=== PATIENT | female | born 1965 | race Caucasian/White ===

== ENCOUNTER 2018-12-11 00:36 | Inpatient (IN) ==
--- NOTE | 2018-12-11 01:22 | EKG Report ---
Test Performed on : 12/11/2018 00:46:24 AM Test Reason : shortness of breath Blood Pressure : / mmHG Vent. Rate : 154 BPM Atrial Rate : 154 BPM P-R Int : 100 ms QRS Dur : 066 ms QT Int : 262 ms P-R-T Axes : 048 030 101 degrees QTc Int : 419 ms Sinus tachycardia. with short VT with premature ventricular complexes. or fusion complexes Nonspecific ST abnormality Abnormal QRS-T angle, consider primary T wave abnormality Abnormal ECG When compared with ECG of 16-MAR-2007 15:59, fusion complexes are now present premature ventricular complexes. are now present Unconfirmed Result
[2018-12-11 01:29] LABS: INR 1.53; PROTIME 18.7 Seconds (11.0-16.0)
[2018-12-11 01:30] LABS: PTT 58.4 Seconds (22.3-41.8)
[2018-12-11] MEDS ORDERED: ZOSYN 3.375 GM in NS 50 ML IV ONE (01:40)
[2018-12-11 01:53] LABS: URINE SOURCE CATH
[2018-12-11 02:09] LABS: BILIRUBIN URINE NEGATIVE (NEGATIVE); BLOOD URINE NEGATIVE (NEGATIVE); COLOR YELLOW; GLUCOSE URINE NEGATIVE (NEGATIVE); KETONE URINE TRACE mg/dL (NEGATIVE); LEUKOCYTES URINE MODERATE (NEGATIVE); NITRITE URINE NEGATIVE (NEGATIVE); PH URINE 5.5; PROTEIN URINE 50 mg/dL (NEGATIVE); SP GRAVITY URINE 1.029; TURBIDITY URINE HAZY (CLEAR); UROBILINOGEN URINE 2 mg/dL (NORMAL)
[2018-12-11 02:10] LABS: UR EPITHELIAL CELLS <10 /HPF (<10); URINE BACTERIA 4+ /HPF; URINE WBC 20-40 /HPF (<10)
[2018-12-11 02:23] LABS: BASO# 0.03 X1000 (0.0-0.2); BASO% 0.1 % (0.0-0.8); EOS# 0.01 X1000 (0.0-0.7); HEMATOCRIT 22.4 % (37.0-47.0); HEMOGLOBIN 7.1 g/dL (12.0-16.0); IMM GRAN# 1.12 X1000 (0.0-0.04); IMM GRAN% 4.7 % (0.0-0.5); LYMPH% 3.8 % (20.5-51.1); MCHC 31.7 g/dL (33-37); MCV 97.8 FL (81-99); MONO# 1.66 X1000 (0.11-0.59); MPV 12.5 FL (7.4-10.4); NEUT% 84.4 % (42.2-75.2); RBC 2.29 XMIL (4.2-5.4); RDW 17.6 % (11.5-14.5); WBC 23.82 X1000 (4.8-10.8)
[2018-12-11 02:24] LABS: PLT 26 X1000 (130-400)
[2018-12-11 02:29] LABS: ALB/GLOB RATIO 0.9; ALBUMIN 2.5 g/dL (3.5-5.0); ALKALINE PHOSPHATASE 411 U/L (32-104); BUN 22 mg/dL (8-22); CALCIUM 7.6 mg/dL (8.8-10.2); CREATININE 0.5 mg/dL (0.5-0.9); ESTIMATED GFR > 60; GLUCOSE 134 mg/dL (70-104); GOT 121 U/L (10-30); GPT 106 U/L (10-36); TCO2 19 mmol/L (25-35); TOTAL BILIRUBIN 1.06 mg/dL (0.20-1.00); TOTAL PROTEIN 5.3 g/dL (6.3-8.3)
--- NOTE | 2018-12-11 02:30 | PROVIDER DOCUMENTATION ---
This chart was entered by Aanhi Sutherland Scribe, acting as scribe for Saúl Dhaliwal MD. HPI-General Adult - General Chief Complaint: Shortness of Breath Stated Complaint: sob Time Seen by Provider: 12/11/18 00:37 Source: patient Allergies/Adverse Reactions: Patient Allergies Allergy/AdvReac Type Severity Reaction Status Date / Time doxycycline Allergy HIVES Verified 12/12/17 07:35 levofloxacin [From Levaquin] Allergy HIVES Verified 12/12/17 07:35 moxifloxacin HCl * Allergy HIVES Verified 12/12/17 07:35 [From Avelox] Home Medications: Home Medication List Medication Instructions Recorded Confirmed Last Taken Type Clonazepam [Klonopin] 1 mg PO TID PRN PRN 10/31/13 12/11/18 10/11/18 History Gabapentin [Neurontin] 300 mg PO TID 11/29/17 12/11/18 10/11/18 History Hydrocodone/Acetaminophen [[place] 10 each PO TID PRN PRN 11/29/17 12/11/18 10/11/18 History 10-325 Tablet] Levothyroxine Sodium [Synthroid] 100 mcg PO DAILY 11/29/17 12/11/18 10/11/18 History Ondansetron HCl [Zofran] 8 mg PO Q4H PRN PRN 11/29/17 12/11/18 10/11/18 History Promethazine [Phenergan] 25 mg PO Q4H PRN PRN 11/29/17 12/11/18 10/11/18 History Zolpidem Tartrate [Ambien Cr] 12.5 mg PO DAILY 11/29/17 12/11/18 10/10/18 History Venlafaxine [Effexor] 150 mg PO DAILY 07/05/18 12/11/18 10/11/18 History Methylphenidate HCl [Ritalin] 5 mg PO BID 10/11/18 12/11/18 10/11/18 History Dronabinol [Marinol] 12.5 mg PO BID 12/11/18 12/11/18 Unknown History Nivolumab [Opdivo] 1 dose IV ORDERED 12/11/18 12/11/18 Unknown History Zolpidem Tartrate [Ambien Cr] 1 tab PO DAILY 12/11/18 12/11/18 Unknown History - History of Present Illness -Gen Adult Nature of Presenting Problems: Pt is 53/F presenting to ED via EMS w/ SOB and abd pain. Pt has had breast cancer w/ mets that got to brain. Pt has been on radiation as well as immunotherapy. EMS sts that her o2 levels were in the 80s upon arrival, were brought up to 98% on 4 liters via nasal canula. Onset/Duration: reports: gradual, just prior to arrival Timing: reports: still present, getting worse Context/Activities at Onset: reports: none Modifying Factors: improves with: nothing Associated Symptoms: reports: cough, shortness of breath. denies: diaphoresis, nausea, vomiting Similar Symptoms Previously?: No Recently seen or treated by another doctor?: No Review of Systems - Adult - REVIEW OF SYSTEMS - ADULT Constitutional: reports: no symptoms reported. denies: chills, fever Eyes: reports: no symptoms reported Ears, Nose, Mouth & Throat: reports: no symptoms reported Cardiovascular: reports: no symptoms reported Respiratory: reports: cough, shortness of breath. denies: wheezing Gastrointestinal: reports: abdominal pain. denies: diarrhea, nausea, vomiting Genitourinary: reports: no symptoms reported Musculoskeletal: reports: no symptoms reported Integumentary: reports: no symptoms reported Neurological: reports: no symptoms reported. denies: dizziness/vertigo, headache/migraines Psychiatric: reports: no symptoms reported Endocrine: reports: no symptoms reported Hematologic/Lymphatic: reports: no symptoms reported Allergic/Immunologic: reports: no symptoms reported All Other Systems: Reviewed and Negative Past History - Adult - PAST MEDICAL HISTORY-ADULT Review of Records: reports: Old Records Reviewed, Nursing Assessment Review, Medications Reviewed, Social history reviewed & non-contributory. Major Childhood Illnesses: reports: denies history Cardiovascular: reports: HTN Respiratory: reports: denies history Gastrointestinal: reports: denies history, GERD Genitourinary: reports: denies history Musculoskeletal: reports: denies history Neurological: reports: denies history Psychiatric: reports: denies history Endocrine/Immune: reports: denies history Other Conditions: reports: denies history - PRIOR SURGERIES/PROCEDURES Surgical/Procedure History: reports: hysterectomy, - FAMILY HISTORY Family History: reviewed, not pertinent - SOCIAL HISTORY Smoking: denies, non-smoker Substance Use: none/never Alcohol Use Frequency: sober (former use) Living Situation: family Physical Exam-General - PHYSICAL EXAM-ADULT Initial Vital Signs Reviewed: Yes - CONSTITUTIONAL General Appearance: appears well, alert, no apparent distress - EYES Eyes: PERRL/EOMI, pink conjunctivae - HEAD, EARS, NOSE, MOUTH & THROAT HENMT: normocephalic/atraumatic, normal ENT inspection. negative: moist mucous membranes (pt is dry) - NECK Neck: non-tender, full range of motion, supple, normal inspection - RESPIRATORY Respiratory: decreased breath sounds (decreased breath sounds on the right), wheezing - CARDIOVASCULAR Cardiovascular: regular rate, rhythm - CHEST (BREASTS) Chest/Breast: other (pt has port in R side of chest and has had L sided mastectomy) - GASTROINTESTINAL (ABDOMEN) Abdominal Exam: soft - LYMPHATIC Lymphatic: no adenopathy - MUSCULOSKELETAL Back Exam: normal inspection Extremity: normal range of motion, non-tender, normal gait, normal inspection - SKIN Integumentary: normal color, warm/dry - NEUROLOGIC Neurologic: grossly normal - PSYCHIATRIC Psych/Mental Status: normal mood/affect, normal thought content, normal thought process, oriented x 3 Progress - PLAN OF CARE/RESULTS Progress/Plan/Lab Results: Orders Category Date Time Status Cardiac Monitoring DIRECTED Care 12/11/18 00:44 Active IV Insertion ORDERED Care 12/11/18 00:44 Active Notify MD of + Sepsis Screen NOW Care 12/11/18 00:44 Active Notify Physician As Ordered Care 12/11/18 00:44 Active Nursing- Obtain EKG ONCE Care 12/11/18 00:34 Active CHEST-1 VIEW [RAD] Stat Exams 12/11/18 00:44 Ordered BLOOD CULTURE [BLDCUL] Stat Lab 12/11/18 00:44 Uncollected CBC WITH DIFF [HEME] Stat Lab 12/11/18 00:44 Uncollected CK PROFILE [SP CHEM] Stat Lab 12/11/18 00:44 Uncollected COMPREHENSIVE METABOLIC PANEL [CHEM] Stat Lab 12/11/18 00:44 Uncollected LACTATE, PLASMA [CHEM] Q3H Lab 12/11/18 00:45 Uncollected LACTATE, PLASMA [CHEM] Q3H Lab 12/11/18 03:45 Uncollected LACTATE, PLASMA [CHEM] Q3H Lab 12/11/18 06:45 Uncollected PROTIME WITH INR [COAG] Stat Lab 12/11/18 00:44 Uncollected PTT [COAG] Stat Lab 12/11/18 00:44 Uncollected TROPONIN T Stat Lab 12/11/18 00:44 Uncollected URINALYSIS W/POSS RFLX CULT [URINALYSIS] Stat Lab 12/11/18 00:44 Uncollected Oxygen Device Stat Oth 12/11/18 00:44 Active EKG [EKG] Stat Ther 12/11/18 00:34 Ordered Result Diagrams: 12/11/18 01:02 12/11/18 01:02 - REASSESSMENT Reassessment #1 Time Reassessed: 02:15 Status: improving Reassessment Comment: HAS UTI AND PNEUMONIA. WILL D/W HOSPITALIST AND ADMIT - EKG 1 Time of EKG reading by physician:: 00:47 EKG Read and Signed by:: Saúl Dhaliwal EKG Interpretation (*Must complete 3 of following elements*): Abnormal (Sinus tachycardia with short CA with prematrue ventricular complexes or fusion complexes. Non specific ST abnormality. Abnormal QRS-T angle, consider primary T wave abnormality. Abnormal ECG) Rate: 154 Rhythm: sinus tachy [place]: normal QRS: normal - XRAY 1 XRAY Study: Chest Impression: Abnormal, See EMR Report XRAY Interpretation: R LUNG CONSOLIDATION, CARDIOMEGALY - CONSULTS/PCP/HOSPITALIST Notification #1 *Consult/PCP/Hospitalist*: D/W DR STOKES Time Discussed: 02:33 Consult Disposition: Will see in ED, Admit Departure - Departure Date of Disposition Decision: 12/11/18 Time of Disposition Decision: 02:36 DIAGNOSIS: Pneumonia, UTI (urinary tract infection), Sepsis, Thrombocytopenia Disposition: ADMITTED INPATIENT 09 Certified Medical Emergency: Emergent Condition: Stable - Critical Care Note This patient required my direct & personal management of CC.: Yes Total Time (mins): 35 Critical Care Statement: This patient required my direct personal management to treat or rule out processes, the absence of which, could potentiallly result in sudden, clinically significant life or limb threatening deterioration. Attestation - Physician/ JAMIE Attestation Patient care was provided by Advanced Practice Provider:: No The physician spent face to face time with patient:: Yes Advanced Practice Provider documentation review:: Supervising physician onsite and consulted in the evaluation and care of this patient. The physician did have a face to face encounter with the patient. This chart was documented by the indicated scribe, (Anahi Sutherland, Delma) and accurately reflects the services I performed and decisions made by me, Saúl Dhaliwal MD, as attested by the provider's signature.
[2018-12-11 02:31] LABS: BANDS 4 % (0-1); LYMPHS 4 % (21-51); MONO 6 % (1-9); SEGS 84 % (42-75)
[2018-12-11 02:33] LABS: CK PROFILE 243 U/L (24-173)
[2018-12-11] MEDS ORDERED: NORCO-10 PO ONE (02:37)
[2018-12-11] MEDS ORDERED: VANCOMYCIN IV PER PHARMACY MISC SCH ×2 (02:45→04:59)
[2018-12-11 03:03] LABS: CK INDEX 0.7 (0.0-2.5); CK-MB 1.67 ng/mL (0.0-5.0)
[2018-12-11] MEDS ORDERED: KLONOPIN PO PRN (03:10)
[2018-12-11] MEDS ORDERED: ZOFRAN PO PRN (03:10)
[2018-12-11] MEDS ORDERED: PHENERGAN PO PRN (03:10)
[2018-12-11] MEDS ORDERED: NORCO-10 PO PRN (03:10)
[2018-12-11 03:13] LABS: CHLORIDE 99 mmol/L (98-107); POTASSIUM 4.6 mmol/L (3.5-5.1); SODIUM 136 mmol/L (136-145)
[2018-12-11 03:22] LABS: AGAP 18
[2018-12-11] MEDS ORDERED: NS 1,000 ML IV ONE (03:26)
[2018-12-11] MEDS ORDERED: NS 500 ML IV ONE (03:42)
[2018-12-11] MEDS ORDERED: NS NEB INH SCH (03:45)
[2018-12-11] MEDS ORDERED: VANCOMYCIN 1,950 MG in NS 500 ML IV ONE (04:00)
--- NOTE | 2018-12-11 04:43 | HISTORY AND PHYSICAL ---
CHIEF COMPLAINT: Shortness of breath. HISTORY OF PRESENT ILLNESS: This is an unfortunate 53-year-old female with a history of breast cancer with metastases to the brain. She recently finished up radiation. She is still on immunotherapy by Dr. Olivares. She stated that she had been short of breath for around the last week. On arrival, EMS checked her oxygen saturation. It was in the 80s. It leonardo to around 96 with 4 L nasal cannula. Stated she had cough and shortness of breath. She denied nausea, vomiting, fever, chills or diarrhea. Chest x-ray showed a fairly dense right- sided infiltrate. She will be admitted for further evaluation and treatment. PAST MEDICAL HISTORY: Hypertension, GERD, breast cancer with metastases. PREVIOUS SURGICAL HISTORY: Mastectomy, hysterectomy, and Port-A-Cath placement. SOCIAL HISTORY: Former alcohol use, none currently. No tobacco. No illicit drugs. Lives with her parents. FAMILY HISTORY: Mother had breast cancer. ALLERGIES: Doxycycline, Levaquin and moxifloxacin. HOME MEDICATION: Opdivo 1 dose every 2 weeks, Ambien CR 12.5 p.o. at bedtime, Klonopin 1 mg p.o. t.i.d. p.r.n., Neurontin 300 mg p.o. t.i.d., [place] 10 p.o. t.i.d. p.r.n., levothyroxine 100 mcg p.o. daily, Ritalin 5 mg p.o. daily, Zofran 8 mg p.o. q.4 p.r.n., Phenergan 25 mg q.4 p.r.n., Effexor 150 mg p.o. daily. REVIEW OF SYSTEMS: Fourteen-point review of systems conducted with the patient. Pertinent positives listed above in HPI. All other systems reviewed and found to be negative. PHYSICAL EXAMINATION: VITAL SIGNS: Temperature 97.6, pulse 130, sinus tachycardia, respirations 18- 22, blood pressure 106/72, oxygen saturation 96% on 4 L nasal cannula. GENERAL: A pleasant 53-year-old female chronically ill appearing lying in the ER stretcher, answers all questions appropriately, alert and oriented times 3 in no acute distress. HEENT: Head is atraumatic, normocephalic. Alopecia noted. Pupils equal, round, react to light. Extraocular eye movement intact. Sclerae are anicteric. Conjunctiva is pale. Oral mucosa is dry. NECK: Supple. No JVD. No thyromegaly. Trachea is midline. No cervical lymphadenopathy. CARDIAC: S1, S2 appreciated. No murmurs, gallops, rubs. LUNGS: Decreased greatly on the right. Wheezing throughout the left lung field. Symmetric rise and fall with respirations. ABDOMEN: Soft, nondistended, nontender. Bowel sounds present all 4 quadrants, normoactive. No pulsatile mass. No organomegaly. EXTREMITIES: No clubbing, cyanosis or edema. One-plus pedal pulses bilaterally. GENITOURINARY: No bladder distention. Patient voids. Otherwise deferred. NEUROLOGICAL: Alert and oriented times 3. Cranial nerves 2-12 grossly intact. DIAGNOSTIC DATA: Chest x-ray shows dense right-sided infiltrates upper, middle and lower lobes. LABORATORY DATA: WBC 23.82. Hemoglobin 7.1. Hematocrit 22.4. Platelet count 26. PT 18.7. INR 1.53. Sodium 135. Potassium 4.4. Chloride 98. Carbon dioxide 19. BUN 22. Creatinine 0.5. Glucose 134. Plasma lactate 3.9. Urine: Leukocyte esterase positive, 20-40 WBCs, 4-plus bacteria. ASSESSMENT AND PLAN: 1. Community-acquired pneumonia. We will treat with Zosyn and vancomycin as the patient is immunocompromised. We will give Xopenex 0.63 mg nebulizers q.4 hours as the patient is chronically tachycardic. I believe she is somewhat fluid volume depleted. We will give a 500 mL bolus and continue gentle hydration. Blood cultures are pending. 2. Urinary tract infection. Please see antibiotic selection above. Urine cultures have been sent. We will await sensitivities. 3. Breast cancer with metastases. Aware. We will consult Dr. Olivares. 4. Hypothyroidism. Continue Synthroid. Check TSH. Further recommendations per patient clinical course. Dictated by OSITO Cardona for Edward Rose MD I have performed a face to face diagnostic evaluation. Labs/ xrays- reviewed. Exam- chest- rhonchi, CV- regular. A/P- Pneumonia- Admit, check blood cultures, IV ABX. Dr. Rose cc: OSITO Cardona MD Sammy Becdach, MD [facility]
[2018-12-11] MEDS ORDERED: TYLENOL PO PRN (04:59)
[2018-12-11] MEDS: NS 1,000 ML IV SCH ×3 (05:06→15:45)
[2018-12-11] MEDS: SYNTHROID PO SCH ×2 (05:41→06:01)
--- NOTE | 2018-12-11 07:28 | Diag Imaging Result Doc PS360 ---
EXAM: CHEST-1 VIEW INDICATION: shortness of breath TECHNIQUE: One view COMPARISON: 12/12/2017 FINDINGS: The right chest port is in stable position. There are multiple masslike opacities seen bilaterally throughout both lungs consistent with known metastatic disease. This has worsened significantly since the previous study. There is dense opacification involving a majority of the right lung suggesting confluence masses or adjacent infiltrate. There is suggestion of at least a small effusion on the right. The cardiac silhouette is stable. IMPRESSION: Multiple masses throughout both lungs with opacification of the majority of the right lung suggesting confluent masses and/or surrounding infiltrate. Electronically signed by Isaias Joshi 12/11/2018 7:26 AM
[2018-12-11] MEDS: XOPENEX NEB INH SCH ×6 (07:46→23:30)
--- NOTE | 2018-12-11 07:50 | EKG Report ---
Test Performed on : 12/11/2018 07:26:07 AM Test Reason : tachycardia Blood Pressure : / mmHG Vent. Rate : 123 BPM Atrial Rate : 123 BPM P-R Int : 124 ms QRS Dur : 070 ms QT Int : 310 ms P-R-T Axes : 039 021 106 degrees QTc Int : 443 ms Sinus tachycardia. Nonspecific ST and T wave abnormality Abnormal ECG When compared with ECG of 11-DEC-2018 00:46, (Unconfirmed) fusion complexes are no longer present premature ventricular complexes. are no longer present Nonspecific T wave abnormality now evident in Anterior leads Confirmed by Jason Carr MD ([id number]) on 12/11/2018 4:11:33 PM
[2018-12-11] MEDS: RITALIN PO SCH ×2 (09:16→20:35)
[2018-12-11] MEDS: EFFEXOR PO SCH (09:19)
[2018-12-11] MEDS: NEURONTIN PO SCH ×3 (09:19→20:36)
[2018-12-11] MEDS: ZOSYN 3.375 GM in NS 50 ML IV SCH ×3 (09:20→20:36)
[2018-12-11] MEDS: LOVENOX SUBQ SCH (09:20)
--- NOTE | 2018-12-11 10:59 | PROGRESS NOTE ---
DATE: 12/11/2018 SUBJECTIVE: This morning Ms. Bonner refers to be feeling fairly the same, extremely weak and mild difficulty breathing. Ms. 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 She is currently on Opdivo every 2 weeks. She also just finished a panbrain radiation for brain metastases. Ms. Bonner has been having some difficulty breathing for the past week, which has progressively been getting extremely worse, associated with generalized weakness and fatigue. She was brought to the emergency department early this morning, and a chest x-ray has revealed multiple masses throughout both lungs with opacification of the majority of the right lung suggesting confluent masses and/or surrounding infiltrates. She has been admitted for further medical care. OBJECTIVE: Vital Signs: Current vital signs, blood pressure is 112/69, pulse of 117, respirations 20, temperature 97.8 degrees. The patient is saturating 95% on 2 L. General: Ms. Bonner is a 53-year-old female. She is in bed. She seems to be in mild distress. HEENT: Mucosa is pink and moist. Anicteric. Acyanotic. Neck: The neck is supple. Chest: Air entry is bilaterally reduced, more so to the right posterior lung field. There are crackles posteriorly and dullness to percussion noted to the posterior right lung base. Cardiovascular: Regular rate and rhythm. Abdomen: Soft. There is an old insular umbilical surgical scar. Extremities: No pedal edema. Central Nervous System: The patient is awake, alert, and oriented. LABORATORY DATA: WBC is 23.82, hemoglobin is 7.1, platelet count of 26,000. The patient has 4% bands on the peripheral smear. Chemistry is also reviewed. Elevated LFTs. Plasma lactate is 3.9 and down to 3.2. ASSESSMENT AND PLAN: 1. Respiratory distress secondary to right lung mass. Complete opacification of right lung concerning for a combination of metastases/ postobstructive pneumonia and pleural effusion. We are going to get a CT scan of the lung to have a better idea. 2. Metastatic malignant breast cancer noted. 3. Transaminitis, presumably due to breast metastasis to liver. 4. Clinical volume depletion. 5. Sepsis, likely due to underlying pneumonia. 6. Thrombocytopenia. cc: Reji Mcfarlane MD [facility]
[2018-12-11 12:45] LABS: BASO# 0.01 X1000 (0.0-0.2); BASO% 0.1 % (0.0-0.8); EOS# 0.01 X1000 (0.0-0.7); EOS% 0.1 % (0.0-10.0); HEMATOCRIT 26.6 % (37.0-47.0); HEMOGLOBIN 8.3 g/dL (12.0-16.0); IMM GRAN% 2.4 % (0.0-0.5); LYMPH# 0.47 X1000 (1.2-3.4); LYMPH% 3.8 % (20.5-51.1); MCH 30.7 PG (27-31); MCHC 31.2 g/dL (33-37); MCV 98.5 FL (81-99); MONO# 0.92 X1000 (0.11-0.59); MONO% 7.4 % (1.7-9.3); NEUT# 10.78 X1000 (1.4-6.5); NEUT% 86.2 % (42.2-75.2); PLT 16 X1000 (130-400); RDW 17.9 % (11.5-14.5); WBC 12.49 X1000 (4.8-10.8)
[2018-12-11 13:08] LABS: BANDS 8 % (0-1); LYMPHS 4 % (21-51); MONO 2 % (1-9); SEGS 84 % (42-75)
--- NOTE | 2018-12-11 13:45 | Diag Imaging Result Doc PS360 ---
EXAM: CT THORAX W/CONTRAST 12/11/2018 HISTORY: lung metastasis TECHNIQUE: This exam was performed using automated exposure control, adjustment of mA or kV according to patient size, and/or use of iterative reconstruction technique. COMMENT: The current study is compared with the previous examination of 12/04/2018. There is considerable worsening of the opacification of the right upper lobe compared to the previous study. There is also more pleural fluid present on both sides particularly the right side. Some of the pleural fluid may be loculated. There are bilateral hilar, right paratracheal, right supraclavicular, subcarinal and aorticopulmonary window adenopathy. This does not appear to have changed significantly. There are extensive and large hepatic metastases, and large portions of the right hepatic lobe laterally are completely replaced with tumor. There is a mass in the lateral left hepatic lobe which measures 5.7 cm in diameter. On the previous examination this measured 5.4 cm. Multiple masses are seen in the left lung. One such mass present laterally in the upper portion of the upper lobe around image 22 has an AP dimension of 3.4 cm. The maximum AP dimension on the previous examination was 3.1 cm. There is a large nodule in the posterior left lower lobe on image 41 which measures 3.6 cm transversely on the current study and previously this measured 3.4 cm. Compressive atelectasis in the right lower lobe is worse than on the previous study. There is marked compression of the upper lobe pulmonary artery on the right. The regional skeleton is stable in appearance. IMPRESSION: Generally worsened pulmonary and hepatic metastases. Worsened postobstructive pneumonitis and/or atelectasis particularly in the right upper lobe and right lower lobe. Worsened bilateral pleural effusions, right more than left. Electronically signed by Biju Zhong 12/11/2018 1:42 PM
[2018-12-11] MEDS: NORCO-10 PO PRN ×2 (14:56→21:49)
[2018-12-11] MEDS: VANCOMYCIN 1,450 MG in NS 250 ML IV SCH (16:23)
[2018-12-11] MEDS: AMBIEN PO SCH (20:35)
[2018-12-11] MEDS: KLONOPIN PO SCH (20:35)
[2018-12-11] MEDS: MARINOL PO SCH (20:37)
[2018-12-11] MEDS: DECADRON PO SCH (20:55)
[2018-12-12] MEDS: NS 1,000 ML IV SCH ×2 (01:56→11:26)
[2018-12-12] MEDS: ZOSYN 3.375 GM in NS 50 ML IV SCH ×4 (01:56→19:22)
[2018-12-12 03:18] LABS: URINE SOURCE CATH
[2018-12-12 03:30] LABS: BILIRUBIN URINE NEGATIVE (NEGATIVE); BLOOD URINE TRACE (NEGATIVE); COLOR YELLOW; GLUCOSE URINE NEGATIVE (NEGATIVE); KETONE URINE TRACE mg/dL (NEGATIVE); LEUKOCYTES URINE NEGATIVE (NEGATIVE); NITRITE URINE NEGATIVE (NEGATIVE); PH URINE 5.5; PROTEIN URINE 30 mg/dL (NEGATIVE); SP GRAVITY URINE 1.039; TURBIDITY URINE HAZY (CLEAR); UROBILINOGEN URINE NORMAL (NORMAL)
[2018-12-12 03:32] LABS: URINE BACTERIA NEGATIVE /HPF; URINE RBC <10 /HPF (<10); URINE WBC <10 /HPF (<10)
[2018-12-12 04:09] LABS: UR EPITHELIAL CELLS <10 /HPF (<10)
[2018-12-12] MEDS: VANCOMYCIN 1,450 MG in NS 250 ML IV SCH ×2 (04:45→16:26)
[2018-12-12 06:02] LABS: INR 1.59; PROTIME 19.3 Seconds (11.0-16.0)
[2018-12-12] MEDS: XOPENEX NEB INH SCH ×6 (06:06→23:15)
[2018-12-12] MEDS: PRILOSEC PO SCH (06:37)
[2018-12-12] MEDS: SYNTHROID PO SCH (06:37)
[2018-12-12 06:40] LABS: AGAP 15; BUN 25 mg/dL (8-22); CHLORIDE 104 mmol/L (98-107); COSMO 285; CREATININE 0.7 mg/dL (0.5-0.9); ESTIMATED GFR > 60; GLUCOSE 190 mg/dL (70-104); POTASSIUM 4.7 mmol/L (3.5-5.1); SODIUM 138 mmol/L (136-145); TCO2 19 mmol/L (25-35)
[2018-12-12 06:41] LABS: ALB/GLOB RATIO 0.6; ALBUMIN 1.9 g/dL (3.5-5.0); ALKALINE PHOSPHATASE 291 U/L (32-104); GOT 115 U/L (10-30); GPT 84 U/L (10-36); MAGNESIUM 1.9 mg/dL (1.5-2.7); PHOSPHORUS 3.3 mg/dL (2.7-4.5); TOTAL BILIRUBIN 1.23 mg/dL (0.20-1.00); TOTAL PROTEIN 4.9 g/dL (6.3-8.3)
[2018-12-12 06:42] LABS: CALCIUM 6.8 mg/dL (8.8-10.2)
[2018-12-12 07:05] LABS: BASO# 0.02 X1000 (0.0-0.2); BASO% 0.1 % (0.0-0.8); IMM GRAN# 0.26 X1000 (0.0-0.04); IMM GRAN% 1.9 % (0.0-0.5); LYMPH# 0.31 X1000 (1.2-3.4); LYMPH% 2.2 % (20.5-51.1); MPV 9.8 FL (7.4-10.4); NEUT# 12.65 X1000 (1.4-6.5); NEUT% 90.8 % (42.2-75.2)
[2018-12-12 07:06] LABS: HEMATOCRIT 31.3 % (37.0-47.0); HEMOGLOBIN 9.8 g/dL (12.0-16.0); MCH 29.3 PG (27-31); MCHC 31.3 g/dL (33-37); MCV 93.4 FL (81-99); RBC 3.35 XMIL (4.2-5.4); WBC 13.94 X1000 (4.8-10.8)
[2018-12-12 07:26] LABS: PLT 12 X1000 (130-400)
[2018-12-12 07:52] LABS: BANDS 14 % (0-1); MONO 2 % (1-9); SEGS 82 % (42-75)
[2018-12-12] MEDS: EFFEXOR PO SCH (08:23)
[2018-12-12] MEDS: LOVENOX SUBQ SCH (08:23)
[2018-12-12] MEDS: DECADRON PO SCH ×2 (08:24→20:34)
[2018-12-12] MEDS: MARINOL PO SCH ×2 (08:24→20:35)
[2018-12-12] MEDS: NEURONTIN PO SCH ×3 (08:24→20:35)
[2018-12-12] MEDS: NORCO-10 PO PRN ×3 (08:38→20:34)
[2018-12-12] MEDS: RITALIN PO SCH ×2 (09:22→20:36)
--- NOTE | 2018-12-12 10:40 | PROGRESS NOTE ---
DATE: 12/12/2018 SUBJECTIVE: This morning, Ms. Bonner refers to be doing fairly okay. According to her, the shortness of breath is getting a little better. Her vitals have been fairly stable without needing any pressors. OBJECTIVE: Vital Signs: Blood pressure is 125/76, pulse of 132, respirations 30, temperature is 97.7 degrees. General: Ms. Bonner is a 53-year-old female. She is in bed. No distress. HEENT: Mucosa is pink and moist. Anicteric. Acyanotic. Neck: Supple. Chest: Air entry is bilaterally reduced. There are some crackles posteriorly, more so to the right posterior lung field, with dullness to percussion. Abdomen: Soft, nontender. Bowel sounds present. Extremities: No pedal edema. SECURITY SYSTEM INSTALLER: The patient is awake, alert, and oriented. There is no focal neurological deficit. Musculoskeletal: There is a port on the right anterior chest wall. LABORATORY DATA: WBC is 13.94, hemoglobin is 9.8, platelet count of 12,000. There are 82% neutrophils and 14% bands on the peripheral smear. Chemistry is also reviewed. So far, the urinalysis is showing a gram-negative zayda. DIAGNOSTIC STUDIES: A CT scan of the chest, which was done yesterday, shows generally worsening pulmonary and hepatic metastases, worsened postobstructive pneumonitis and/or atelectasis, particularly in the right upper lobe and right lower lobe. There were also worsening bilateral pleural effusions, right more than the left. ASSESSMENT: 1. Respiratory distress secondary to a combination of pneumonia and worsening lung metastasis. 2. Postobstructive pneumonitis. The patient is on intravenous antibiotics. 3. Severe sepsis/septic shock. Vitals are currently stable. The patient has not needed any vasopressor support. Will continue with adequate hydration and antimicrobial. 4. Gram-negative zayda urinary tract infection. The patient is on antimicrobials. 5. Thrombocytopenia, which we think is a combination of sepsis and chemotherapy side effects. 6. Worsening pleural effusion, right more than left. Hematology/Oncology has ordered a thoracentesis. We are going to transfuse the patient a unit of platelet count, at least to have it above 50 before we do a thoracentesis. 7. History of hypothyroid with elevated TSH, which would be concerning for drug- induced hyperthyroidism. Re-adjust dose of levothyroxine. 8. History of left breast cancer, status post mastectomy. The patient is currently on chemotherapy/immunotherapy. Current imaging studies reveal widespread metastatic lesions, especially to the lungs and the liver, which seem to be getting worse according to the report. 9. Transaminitis secondary to liver metastasis. cc: Reji Mcfarlane MD MTDD
[2018-12-12] MEDS ORDERED: BLISTEX MEDICATED BERRY LIP BALM TOP PRN (11:28)
[2018-12-12] MEDS: KLONOPIN PO SCH (20:34)
[2018-12-12] MEDS: AMBIEN PO SCH (20:35)
--- NOTE | 2018-12-12 20:46 | CONSULTATION ---
DATE OF CONSULTATION: 12/12/2018 REQUESTING PROVIDER: Reji Mcfarlane MD REASON FOR CONSULTATION: Hypoxic failure, worsening obstructive pneumonia. HISTORY OF PRESENT ILLNESS: This is a 53-year-old female with medical history of breast cancer with metastasis to brain, lung and liver; gastroesophageal reflux disease; hypertension. She presented to the ER via EMS yesterday with worsening shortness of breath and acute abdominal pain. Initial workup in the ER revealed community-acquired pneumonia and urinary tract infection. She has been admitted to the ICU for further evaluation and management. The patient currently is lying in bed with no acute distress. The patient's is at the bedside. They reported the patient has completed radiation to her brain and lung since last Tuesday. She is still on immunotherapy and they are having treatment planning for the liver metastasis per Dr. Olivares. She reports shortness of breath and productive cough since last week. She also has general weakness. She has to use a wheelchair since last week, after her last radiation. She reports no fever, chills, nausea, vomiting, constipation or diarrhea. No chest pain. She does have chronic tachycardia, with baseline heart rate about 120 to 130s. PAST MEDICAL HISTORY: 1. Breast cancer with metastasis to the brain, lung and liver. 2. Gastroesophageal reflux disease. 3. Hypertension. PAST SURGICAL HISTORY: 1. Left-sided mastectomy. 2. Hysterectomy. 3. . 4. Port-A-Cath placement. SOCIAL HISTORY: The patient currently lives at home with her and one of her daughters. She has history of alcohol use but no tobacco or illicit drug use. FAMILY HISTORY: Mother had breast cancer. ALLERGIES: Doxycycline, levofloxacin, moxifloxacin. REVIEW OF SYSTEMS: A 10-point review of systems was conducted and the pertinent is listed within the HPI, otherwise noncontributory. PHYSICAL EXAMINATION: Vital Signs: Temperature 97.7 degrees, blood pressure 125/76, pulse 132, respiratory rate 30, oxygen saturation 95% on nasal cannula at 2. General: Chronically ill- appearing, lying in bed comfortably with some respiratory distress. The patient's is at the bedside. HEENT: Atraumatic, normocephalic. Trachea midline. Mucosa pink and slightly dry. Respiratory: Some tachypnea. Symmetrical excursion. Increased WOB. Auscultation revealed early inspiratory crackles bibasilarly with diminished breathing sounds bilaterally, right side worse than the left side. Cardiovascular: Regular rate and rhythm. Gastrointestinal: Soft, nondistended, nontender. Normoactive bowel sounds in all 4 quadrants. Extremities: No pedal edema. No cyanosis. No clubbing. Dorsalis pedis 1+ bilaterally. Neurologic: Alert and oriented x3. Speech fluent. Follows commands. Generalized weakness. LABORATORY DATA: White blood cells 14.94, hemoglobin 9.8, hematocrit 31.3, platelets 12,000. Sodium 138, potassium 4.7, chloride 104, carbon dioxide 19, BUN 25, creatinine 0.7, glucose 190. Plasma lactate 4.0. IMAGING DATA: CT thorax with contrast on 12/11/2018 revealed generally worsened pulmonary and hepatic metastasis; worsened postobstructive pneumonitis and/or atelectasis, particularly in the right upper lobe and right lower lobe; worsened bilateral pleural effusions, right more than left. ASSESSMENT: This is a 53-year-old female with a medical history of breast cancer with metastasis to the brain, lung and liver; gastroesophageal reflux disease; hypertension. She has been admitted to the intensive care unit since yesterday, with community- acquired pneumonia and urinary tract infection. 1. Acute respiratory distress. 2. Postobstructive pneumonia versus pneumonitis. 3. Bilateral pleural effusions, right more than left. 4. Urinary tract infection. 5. Breast cancer with metastasis to the brain, lung and liver. 6. Thrombocytopenia. 7. Sepsis. PLAN: 1. Continue supplemental oxygen as needed. 2. Continue antibiotic and bronchodilators. 3. Discontinue Lovenox at this time. Agree with platelet transfusion before thoracentesis. 4. Follow up with CBC, CMP and blood culture. 5. Continue GI prophylaxis. 6. Dr. Burk is on board. 7. Further recommendations pending hospital course. Thank you for the courtesy of this consult. Dictated by OSITO Gorman for Steven Garcia MD cc: OSITO Gorman [facility]
[2018-12-13] MEDS ORDERED: VANCOMYCIN 1,450 MG in NS 250 ML IV SCH (02:00)
[2018-12-13] MEDS: ZOSYN 3.375 GM in NS 50 ML IV SCH ×4 (02:45→19:55)
[2018-12-13] MEDS: XOPENEX NEB INH SCH ×6 (03:22→23:00)
[2018-12-13] MEDS: VANCOMYCIN 1,450 MG in NS 250 ML IV SCH (04:32)
[2018-12-13] MEDS: NORCO-10 PO PRN ×3 (05:54→20:44)
[2018-12-13 06:02] LABS: BASO# 0.01 X1000 (0.0-0.2); BASO% 0.1 % (0.0-0.8); HEMATOCRIT 30.8 % (37.0-47.0); HEMOGLOBIN 9.7 g/dL (12.0-16.0); IMM GRAN# 0.18 X1000 (0.0-0.04); IMM GRAN% 1.2 % (0.0-0.5); LYMPH% 2.6 % (20.5-51.1); MCH 29.7 PG (27-31); MCHC 31.5 g/dL (33-37); MCV 94.2 FL (81-99); MONO# 0.77 X1000 (0.11-0.59); MPV 12.3 FL (7.4-10.4); NEUT# 13.93 X1000 (1.4-6.5); NEUT% 91.1 % (42.2-75.2); RBC 3.27 XMIL (4.2-5.4); WBC 15.29 X1000 (4.8-10.8)
[2018-12-13 06:12] LABS: PLT 34 X1000 (130-400)
[2018-12-13 06:48] LABS: AGAP 16; ALB/GLOB RATIO 1.1; ALBUMIN 2.4 g/dL (3.5-5.0); ALKALINE PHOSPHATASE 277 U/L (32-104); BANDS 6 % (0-1); BUN 24 mg/dL (8-22); CHLORIDE 105 mmol/L (98-107); COSMO 288; CREATININE 0.5 mg/dL (0.5-0.9); ESTIMATED GFR > 60; GLUCOSE 187 mg/dL (70-104); GOT 133 U/L (10-30); GPT 87 U/L (10-36); LYMPHS 2 % (21-51); MONO 1 % (1-9); SEGS 91 % (42-75); SODIUM 140 mmol/L (136-145); TCO2 19 mmol/L (25-35); TOTAL BILIRUBIN 1.19 mg/dL (0.20-1.00); TOTAL PROTEIN 4.6 g/dL (6.3-8.3)
[2018-12-13] MEDS: PRILOSEC PO SCH (07:20)
[2018-12-13] MEDS: SYNTHROID PO SCH (07:20)
[2018-12-13 07:31] LABS: CALCIUM 6.5 mg/dL (8.8-10.2)
[2018-12-13] MEDS: EFFEXOR PO SCH (08:00)
[2018-12-13] MEDS: MARINOL PO SCH ×2 (08:01→21:44)
[2018-12-13] MEDS: NEURONTIN PO SCH ×3 (08:01→21:44)
[2018-12-13] MEDS: DECADRON PO SCH ×2 (08:01→21:43)
[2018-12-13] MEDS: RITALIN PO SCH ×3 (08:01→21:52)
[2018-12-13] MEDS ORDERED: NS 500 ML IV ONE (08:38)
--- NOTE | 2018-12-13 09:45 | Diag Imaging Result Doc PS360 ---
EXAM: US THORACENTESIS W/IMAGE GUIDE 12/13/2018 HISTORY: lg right pleural effusion TECHNIQUE: Right thoracentesis with ultrasound guidance. COMMENT: The risks and benefits the procedure including the possibility of pneumothorax, bleeding, infection, or reaction to lidocaine were discussed with the patient and she agreed to the procedure. Following sterile preparation the skin posteriorly on the right and administration 1% lidocaine to the skin and deeper soft tissues, the thoracentesis catheter was placed and subsequently 800 mL of grossly bloody pleural fluid was drained by syringe pump technique. IMPRESSION: Successful ultrasound-guided thoracentesis. Electronically signed by Biju Zhong 12/13/2018 9:43 AM
--- NOTE | 2018-12-13 09:51 | Diag Imaging Result Doc PS360 ---
EXAM: CHEST-2 VIEWS 12/13/2018 HISTORY: POST RIGHT U/S THORACENTESIS TECHNIQUE: Inspiratory expiratory upright AP chest COMMENT: There is less apparent pleural fluid on the right than on the previous examination of 12/11/2018. There is no evidence of pneumothorax. IMPRESSION: No evidence of pneumothorax. Electronically signed by Biju Zhong 12/13/2018 9:49 AM
[2018-12-13] MEDS: MORPHINE IV PRN (10:01)
[2018-12-13 11:33] LABS: AMYLASE BODY FLUID 37 U/L; GLUCOSE BODY FLUID 161 mg/dL; LDH BODY FLUID 556 U/L; TOTAL PROT BODY FLUID 2.1 g/dL
--- NOTE | 2018-12-13 13:03 | PROGRESS NOTE ---
DATE: 12/13/2018 SUBJECTIVE: This morning Ms. Bonner refers to be feeling slightly better, still has some residual shortness of breath. She underwent a right sided thoracentesis with ultrasound guidance early this morning. Per their report, 800 mils of grossly bloody pleural fluid was drained by syringe pump technique. OBJECTIVE: Currently, her vitals, blood pressure is 117/85, pulse of 135, respirations 21, temperature is 98.1 degrees. General: Ms. Bonner is a 53-year-old female. She is in bed. She seems to be in mild respiratory distress. Mucosa is pink and moist. Anicteric. Acyanotic. Neck: Neck is supple. Lungs: Chest air entry is bilaterally reduced. There are still crackles in both lung chaney. There is percussion to dullness to the right posterior lung chaney. Abdomen: Soft and nontender. Bowel sounds are present. Extremities: No pedal edema. VEHICLE CARE SPECIALIST: Patient is awake, alert, and oriented. There is no focal neurological deficit. LABORATORY DATA: 1. WBC is 15.25, WBC 15.29, hemoglobin is 9.7, and platelet count of 34,000. The patient still has 6% of bands on the peripheral smear. Chemistry is all reviewed. Calcium is 6.5. AST and ALT remains elevated. Plasma lactate is 4.9. 2. Fluid analysis shows an LDH of 556 still pending the cell counts. 3. A repeat chest x-ray after the thoracentesis shows no evidence of pneumothorax. 4. The Gram stain showed no bacteria. There were many white cell counts. ASSESSMENT: 1. Respiratory distress secondary to a combination of pleural effusion, metastatic lung disease, and possible underlying pneumonia. 2. Post obstructive pneumonitis. Patient is on IV antibiotics. 3. Sepsis, presumably due to underlying pneumonia. The patient is not on any pressors. So far, blood cultures have been 48 hours negative. We will continue with the antimicrobial therapy. 4. E. coli UTI. The patient is on antimicrobial therapy. 5. Bilateral pleural effusion, right more than left. Patient is status post thoracentesis. We are pending the fluid analysis. 6. Hypothyroidism. We will continue with the newly adjusted supplement dose. 7. History of left breast cancer status post mastectomy with imaging studies appearing to suggest a widespread metastatic lesion, especially to the lungs and to liver. 8. Transaminitis secondary to liver metastasis. 9. Thrombocytopenia. The patient was ordered a unit of platelets before the thoracentesis. PLAN: In general, I think Ms. Bonner continues to be extremely sick but stable. She underwent a thoracentesis this morning which was successful. I understand 800 mL of bloody fluid was removed. Her respiratory status continues to be tenuous. The patient is on IV antimicrobial therapy. There is a plan for her to be transported to [facility] for radiation mapping. Will be pending arrangement from the Heme-Onc, and then go from there. cc: Reji Mcfarlane MD Critical time spent 45 minutes. NEGRITO
[2018-12-13 13:21] LABS: BODY FLUID SOURCE PLEURAL FLUID; SPECIMEN PLEURAL FLUID; WBC BF 1895 /cumm
[2018-12-13 13:22] LABS: MONOS 4 %; POLYS 96 %
--- NOTE | 2018-12-13 19:33 | HEMO/ONC CONSULTATION ---
DATE: 12/11/2018 ADMITTING PHYSICIAN: Dr. Edward Rose. REQUESTING PHYSICIAN: Dr. Edward Rose. We appreciate this consult. CHIEF COMPLAINT: Breast cancer. HISTORY OF PRESENT ILLNESS: Ms. Melissa Bonner is a pleasant 53-year-old, female, well known to Dr. Olivares, with a history of metastatic triple negative breast cancer with recent progression. The patient has recently been on Opdivo. The patient does have metastasis to the brain and has undergone whole brain radiation. Prior to admission, the patient reports that she has had progressive shortness of breath for approximately 1 week. The patient's ultimately called EMS secondary to significant shortness of breath and dyspnea. Upon presentation to [facility] Emergency Department, the patient's oxygen saturation was found to be in the 80s. She was placed on 4 L nasal cannula O2 with an increase in oxygen saturation to 96. The patient also reports that she had recently had a cough. Chest x-ray revealed dense right- sided infiltrate. The patient was admitted for evaluation and treatment, and we are consulted as the patient is well known to us. PAST MEDICAL HISTORY: 1. Hypertension. 2. Gastroesophageal reflux disease. 3. Metastatic breast cancer. PAST SURGICAL HISTORY: 1. Mastectomy with reconstruction. 2. Hysterectomy. 3. section. 4. Port-A-Cath placement. SOCIAL HISTORY: The patient does not use tobacco, alcohol, or illicit drugs. FAMILY HISTORY: Significant for breast cancer in the patient's mother. MEDICATIONS ON ADMISSION: 1. Opdivo. 2. Ambien. 3. Klonopin. 4. Neurontin. 5. [place]. 6. Levothyroxine. 7. Ritalin. 8. Zofran. 9. Phenergan. 10. Effexor. ALLERGIES: Doxycycline, Levaquin, and moxifloxacin. REVIEW OF SYSTEMS: A 14 point review of systems was obtained and is negative except for mentioned in HPI. PHYSICAL EXAMINATION: General: Ms. Bonner is a 53-year-old, female lying supine in bed, who appears quite weak and is slightly dyspneic. Vital Signs: Temperature 97.8 degrees, blood pressure 112/69, heart rate 117, respirations are 20, O2 saturation is 95% on 2 L nasal cannula O2. HEENT: Normocephalic, atraumatic. Mucous membranes are pale and moist. Sclerae are anicteric. Extraocular movements intact. Neck: Supple. Lungs: Decreased breath sounds on the right, otherwise clear to auscultation. CV: S1, S2 are heard. The patient is tachycardic. Abdomen: Soft, nondistended, nontender. Bowel sounds positive in all quadrants. No rebound or guarding noted. Extremities: Trace bilateral lower extremity edema. Dermatologic: No rashes, bruises, or lesions. Neurologic: The patient is awake, but somnolent. She has no focal deficits. LABORATORY DATA: Hemoglobin 7.1, hematocrit 22.4, white blood cell count is 23.82, platelets 26,000. Sodium 136, potassium 4.6, chloride 99, CO2 is 19, BUN 22, creatinine 0.5, and glucose is 134. Bilirubin 1.06, alkaline phosphatase 411, AST 121, ALT 106, troponin is 0.033. UA is positive for a UTI. IMAGING STUDIES: Chest x-ray reveals multiple masses in both lungs with opacification of majority of right lung. ASSESSMENT AND PLAN: 1. Metastatic triple negative breast cancer with progression of disease, currently on Opdivo. Additionally, the patient recently concluded whole-brain radiation secondary to brain metastasis. 2. Community-acquired pneumonia, currently on antibiotics. 3. Urinary tract infection, currently on antibiotics. 4. Hypothyroidism, stable at this time. 5. Opacification of majority of right lung. We will consider thoracentesis. The patient will continue supplemental oxygen. Treatment per hospitalist. 6. We will follow along with you and make further recommendations pending outcomes. The above reflects the history, exam, assessment, and plan of Dr. Olivares. Dictated by OSITO Wilder for Andrade Olivares MD cc: OSITO Wilder MD
[2018-12-13] MEDS: AMBIEN PO SCH (21:44)
[2018-12-13] MEDS: KLONOPIN PO SCH (21:44)
[2018-12-14] MEDS: ZOSYN 3.375 GM in NS 50 ML IV SCH (01:29)
[2018-12-14] MEDS: VANCOMYCIN 1,450 MG in NS 250 ML IV SCH ×2 (01:29→19:46)
[2018-12-14] MEDS: XOPENEX NEB INH SCH ×6 (03:21→23:23)
[2018-12-14] MEDS ORDERED: LASIX IV ONE (04:36)
[2018-12-14 04:42] LABS: ALLEN TEST YES; BLOOD TYPE ARTERIAL; HCO3-(ACT) 23.4 mmoll (20.0-26.0); METHB 0.5 % (0.0-1.5); O2HB 95.8 % (95.0-99.0); PCO2(98.6) 33 mmHg (35-45); PO2(98.6) 80 mmHg (60-100); SAMPLE BLOOD; SAO2 99.2 % (95.0-100.0); THB 9.6 g/dL (11.5-17.4); pH(98.6) 7.43 (7.35-7.45)
[2018-12-14 04:44] LABS: MODALITY CANNULA
[2018-12-14 05:47] LABS: HEMATOCRIT 29.2 % (37.0-47.0); HEMOGLOBIN 9.2 g/dL (12.0-16.0); MCH 29.7 PG (27-31); MCHC 31.5 g/dL (33-37); MCV 94.2 FL (81-99); RDW 20.6 % (11.5-14.5); WBC 14.76 X1000 (4.8-10.8)
[2018-12-14 05:48] LABS: BASO# 0.01 X1000 (0.0-0.2); BASO% 0.1 % (0.0-0.8); IMM GRAN# 0.15 X1000 (0.0-0.04); LYMPH% 2.7 % (20.5-51.1); MONO% 4.1 % (1.7-9.3); NEUT% 92.1 % (42.2-75.2)
[2018-12-14 05:51] LABS: PLT 16 X1000 (130-400)
[2018-12-14] MEDS: NORCO-10 PO PRN ×3 (05:56→20:10)
[2018-12-14] MEDS ORDERED: MAXIPIME 1 GM in NS 50 ML IV SCH (06:00)
[2018-12-14] MEDS: SYNTHROID PO SCH (06:03)
[2018-12-14] MEDS: PRILOSEC PO SCH (06:03)
[2018-12-14 06:17] LABS: ANISOCYTOSIS OCCASIONAL; BANDS 7 % (0-1); LYMPHS 2 % (21-51); MONO 1 % (1-9); POLYCHROM 1+; SEGS 87 % (42-75)
--- NOTE | 2018-12-14 06:26 | Diag Imaging Result Doc PS360 ---
EXAM: CHEST-1 VIEW HISTORY: SOB TECHNIQUE: Portable chest single view COMPARISON: 12/13/2018 FINDINGS: There are bilateral infiltrates/masses. The infiltrates are more prominent in the right lung than on the prior exam. Small to moderate right pleural effusion. No left pleural effusion identified. Cardiomegaly. No change in the right-sided portacatheter. Moderate scoliosis. IMPRESSION: Mild worsening. Electronically signed by Alberto Ellis 12/14/2018 6:23 AM
[2018-12-14 07:03] LABS: INR 1.61; PROTIME 19.5 Seconds (11.0-16.0)
[2018-12-14 07:48] LABS: AGAP 19; ALB/GLOB RATIO 0.8; ALBUMIN 2.3 g/dL (3.5-5.0); ALKALINE PHOSPHATASE 247 U/L (32-104); BUN 27 mg/dL (8-22); CALCIUM 7.1 mg/dL (8.8-10.2); CHLORIDE 103 mmol/L (98-107); COSMO 291; CREATININE 0.5 mg/dL (0.5-0.9); ESTIMATED GFR > 60; GLUCOSE 211 mg/dL (70-104); GOT 136 U/L (10-30); GPT 86 U/L (10-36); POTASSIUM 3.9 mmol/L (3.5-5.1); SODIUM 140 mmol/L (136-145); TCO2 18 mmol/L (25-35); TOTAL BILIRUBIN 1.33 mg/dL (0.20-1.00); TOTAL PROTEIN 5.3 g/dL (6.3-8.3)
[2018-12-14 08:18] LABS: SCHISTOCYTES OCCASIONAL
[2018-12-14] MEDS: DECADRON PO SCH ×2 (09:25→20:11)
[2018-12-14] MEDS: MARINOL PO SCH ×2 (09:26→20:11)
[2018-12-14] MEDS: EFFEXOR PO SCH (09:26)
[2018-12-14] MEDS: NEURONTIN PO SCH ×3 (09:26→20:10)
[2018-12-14] MEDS: RITALIN PO SCH ×2 (09:28→20:12)
[2018-12-14] MEDS: MORPHINE IV PRN ×2 (10:04→16:47)
--- NOTE | 2018-12-14 11:58 | PROGRESS NOTE ---
DATE: 12/14/2018 SUBJECTIVE: This morning Ms. Bonner refers to be doing a little better. The was at the bedside at the time of the encounter. She, however, seems to be more tachypneic than yesterday. She went for chest mapping for radiation therapy. OBJECTIVELY: Her current vitals: Blood pressure is 131/83, pulse 137, respirations 25, temperature 98.5 degrees. On general exam, Ms. Bonner is a 53-year-old female. She is in bed. She seems to be in mild respiratory distress. Mucosa is pink and moist. Anicteric. Acyanotic. Chest: Air entry is bilaterally reduced, more so to the right posterior lung field. There is a dullness on percussion note with crackles as well. Cardiovascular: Tachycardic. No murmurs, no rubs, no gallops. Gastrointestinal: Abdomen is soft, minimally distended, but nontender. Bowel sounds are present, but slightly hypoactive. Extremities: No pedal edema. Central Nervous System: Patient is awake, alert, and oriented. LABORATORY DATA: WBC is 14.76, hemoglobin is 9.2, platelet count is down to 16, bands of about 7. Chemistry is also reviewed. AST and ALT continue to be elevated. Lactate dehydrogenase is very elevated. There are occasional schistocytes. ASSESSMENT: 1. Respiratory distress on presentation secondary to a combination of pleural effusion, metastatic lung disease, and pneumonia. 2. Postobstructive pneumonia with parapneumonic effusion. Patient is status post thoracentesis. We will continue with the IV antimicrobial therapy. 3. Sepsis secondary to pneumonia. 4. Escherichia coli urinary tract infection. Patient is on antimicrobial therapy. 5. Bilateral pleural effusion, right more than left. The patient is status post thoracentesis. Fluid analysis shows neutrophilic predominant, which would be concerning for parapneumonic effusion. 6. Hypothyroidism. We will continue with supplement. 7. History of triple-negative breast cancer with widespread metastases to lungs and to liver. 8. Transaminitis secondary to liver metastases. 9. Thrombocytopenia. We think this is secondary to the ongoing sepsis; however, chemotherapy side effects as well as antimicrobial side effects could also make this worsen. The patient had 2 transfusions of platelets. It has not really improved. She has schistocytes on the peripheral smear. LDH is elevated. D-dimer is elevated so there is a concern for an underlying DIC, which would be precipitated by the ongoing infection. We will continue treating the underlying pathology. Patient is not bleeding at this point, so we would withhold transfusion until patient is evaluated by Hematology/Oncology today. In general, this morning a chest x-ray shows worsening of pleural effusion. Patient seems slightly more tachypneic. Platelet count is also down. We have changed the Zosyn to cefepime. We will continue with the vancomycin. The patient does had mapping of the chest wall and hopefully beginning radiation therapy today. I think Ms. Bonner's underlying malignancy is what is driving most of her current clinical picture. I think she has an advanced metastatic triple-negative breast cancer, according to the Hematology/Oncology notes, and it is just probably getting to the end of the road. cc: Reji Mcfarlane MD Critical time spent: 1 hour NEGRITO
[2018-12-14] MEDS ORDERED: LEVAQUIN PO SCH (16:00)
[2018-12-14] MEDS: MAXIPIME 2 GM in NS 50 ML IV SCH ×2 (16:30→23:12)
[2018-12-14] MEDS: KLONOPIN PO SCH (20:10)
[2018-12-14] MEDS: AMBIEN PO SCH (20:11)
--- NOTE | 2018-12-14 20:26 | CONSULTATION ---
DATE OF CONSULTATION: 12/14/2018 CONCLUSION: The patient has pneumonia. Her latest chest x-ray shows worsening of the right-sided pneumonia. RECOMMENDATIONS: I agree with treating the patient with vancomycin and cefepime. I have increased the dose of cefepime to 2 g IV every 8 hours and also, I have added Levaquin 750 mg p.o. daily. DISCUSSION: The patient was unable to provide a history. It was taken from her . She had been having cough and some shortness of breath. She was admitted to the hospital and found to have pneumonia. Sputums have been ordered. The patient had a thoracentesis. The fluid showed a white blood cell count of 18,900. The pleural fluid had a white blood cell count of 1895, with 96% of the white cells being polymorphonuclear. Acid-fast and fungal smears were negative. Culture from the pleural fluid is negative. Urine culture grew E. coli. The patient's chest x- ray shows worsening of the right lung infiltrate. CBC shows a white count of 14,760, hemoglobin 9.2, and platelet count 16,000. Blood gases show a pH of 80 and a pCO2 of 33. Creatinine is 0.5, GFR is greater than 60, alkaline phosphatase is 247. Urinalysis showed no white cells or bacteria. [employer] MODEL [employer]KER HISTORY: The patient is a 2, para 2, AB 0. The patient has had a section to deliver both of her children. The patient has had a hysterectomy and bilateral salpingo- oophorectomy. PREVIOUS HOSPITALIZATIONS AND OPERATIONS: Patient has had 2 sections, a hysterectomy, bilateral salpingo-oophorectomy, a left mastectomy with reconstruction, and placement of a right Port-A-Cath. MEDICAL DISEASES: Positive for breast cancer with metastases in the brain, lung, and liver. The patient had diabetes mellitus, but because she was eating so much less, she does not have any elevated glucose, and she does not take any medications for diabetes. The patient also has hypertension and hypothyroidism. INFECTIOUS DISEASE HISTORY: Positive for urinary tract infection. Negative for pneumonia. FAMILY HISTORY: Positive for diabetes mellitus, hypertension, and cancer. [place]IAL H[place]ORY[place] . ALLERGIES: Doxycycline, levofloxacin, and moxifloxacin. The reaction of all 3 of the medications was hives. MEDICATIONS: The patient is taking at home include the following: Klonopin, Decadron, Marinol, Neurontin, [place], Synthroid, lisinopril, morphine, Opdivo, Prilosec, Zofran, Phenergan Effexor, and Ambien. PHYSICAL EXAMINATION: Vital Signs: Temperature is 99 degrees, pulse 132, respirations 27, blood pressure is 128/85. Patient is [id number]. She weighs 160 pounds. She is 5 feet 4 inches tall. General: This is an obese and ill-appearing, middle-aged female. She is in no acute distress. Head/eyes/ears/nose/throat: The patient is missing most of her hair. She can hear my spoken words and see near objects. She did not have any white patches on her tongue. She did follow a request to move her extremities. There is no tremor. She did not talk very much at all. Neck: No meningismus. Lungs: Clear to auscultation. Cardiovascular: Regular heart rate. Abdomen: Soft and nontender. Neurologic: The patient is awake. She did follow a request to move her extremities. There is no tremor. She talked very rarely. Integument: No rash. Thank you for the consult. cc: Michael Pena MD
[2018-12-15] MEDS ORDERED: LASIX IV ONE ×2 (01:38→19:58)
[2018-12-15] MEDS: XOPENEX NEB INH SCH ×6 (03:46→23:59)
[2018-12-15] MEDS: NORCO-10 PO PRN ×2 (04:46→12:28)
[2018-12-15] MEDS: PRILOSEC PO SCH (06:08)
[2018-12-15] MEDS: SYNTHROID PO SCH (06:09)
[2018-12-15 06:28] LABS: BASO# 0.02 X1000 (0.0-0.2); BASO% 0.1 % (0.0-0.8); HEMATOCRIT 30.3 % (37.0-47.0); HEMOGLOBIN 9.6 g/dL (12.0-16.0); IMM GRAN# 0.35 X1000 (0.0-0.04); IMM GRAN% 2.1 % (0.0-0.5); LYMPH# 0.94 X1000 (1.2-3.4); LYMPH% 5.6 % (20.5-51.1); MCH 29.7 PG (27-31); MCHC 31.7 g/dL (33-37); MCV 93.8 FL (81-99); MONO# 0.69 X1000 (0.11-0.59); MONO% 4.1 % (1.7-9.3); NEUT% 88.1 % (42.2-75.2); RBC 3.23 XMIL (4.2-5.4); RDW 20.5 % (11.5-14.5)
[2018-12-15 06:35] LABS: PLT 11 X1000 (130-400)
[2018-12-15 06:44] LABS: AGAP 17; ALB/GLOB RATIO 0.7; ALBUMIN 2.3 g/dL (3.5-5.0); ALKALINE PHOSPHATASE 280 U/L (32-104); BUN 39 mg/dL (8-22); CALCIUM 7.2 mg/dL (8.8-10.2); CHLORIDE 98 mmol/L (98-107); COSMO 289; CREATININE 0.7 mg/dL (0.5-0.9); ESTIMATED GFR > 60; GLUCOSE 232 mg/dL (70-104); GOT 222 U/L (10-30); GPT 122 U/L (10-36); POTASSIUM 4.3 mmol/L (3.5-5.1); SODIUM 136 mmol/L (136-145); TCO2 21 mmol/L (25-35); TOTAL BILIRUBIN 1.69 mg/dL (0.20-1.00); TOTAL PROTEIN 5.4 g/dL (6.3-8.3)
[2018-12-15] MEDS ORDERED: NS 500 ML IV ONE (08:18)
[2018-12-15] MEDS: MAXIPIME 2 GM in NS 100 ML IV SCH ×2 (08:22→15:41)
[2018-12-15] MEDS: DECADRON PO SCH (08:23)
[2018-12-15] MEDS: MARINOL PO SCH (08:24)
[2018-12-15] MEDS: NEURONTIN PO SCH ×3 (08:24→17:39)
[2018-12-15] MEDS: EFFEXOR PO SCH (08:24)
[2018-12-15] MEDS ORDERED: ZITHROMAX PO SCH (09:00)
--- NOTE | 2018-12-15 09:01 | Diag Imaging Result Doc PS360 ---
EXAM: CHEST-PORTABLE 12/15/2018 HISTORY: dyspnea TECHNIQUE: AP portable at 0841 COMMENT: There is a large right pleural effusion. The inspiration is less optimal than on the previous study of 12/14/2018. There are numerous pulmonary masses bilaterally. IMPRESSION: Pulmonary metastatic disease, pulmonary edema versus pneumonia and right pleural effusion. Electronically signed by Biju Zhong 12/15/2018 8:58 AM
[2018-12-15] MEDS: RITALIN PO SCH (09:12)
[2018-12-15] MEDS: MORPHINE IV PRN ×3 (09:32→22:21)
--- NOTE | 2018-12-15 09:33 | INFECTIOUS DISEASE PROGRESS NO ---
DATE: 12/15/2018 PRESENT ILLNESS: The patient has a right lung pneumonia which has worsened slightly on radiographic study. The patient does have a pleural fluid also. MEDICATIONS: The patient is on his on vancomycin and cefepime now for 4 days. I have increased the dose of cefepime. I initially ordered Levaquin but the patient is allergic to it, so I have substituted for Levaquin, azithromycin which is being started today. The patient has been taking vancomycin and cefepime now for 4 days. The patient also has an E coli urinary tract infection. PHYSICAL EXAMINATION: Vital Signs: Temperature is 98 degrees, pulse 131, respirations 24, blood pressure is 117/84. The patient weighs 157 pounds. General: This is an ill-appearing, middle- aged female. She is in no acute distress. Head, eyes, ears, nose and Throat: She can hear my spoken words and see near objects. She did not have any white coating on her tongue. Neck: No pain with movement. Lungs: Clear to auscultation. Cardiovascular: Heart rate is regular. Thorax: Patient has a Port-A-Cath in place. The site is not erythematous or swollen. Abdomen: Soft and nontender. Neurologic: The patient is awake. She does follow requests to move her extremities. She does answer questions and she is able to speak. She has a flat affect. LAB AND X-RAY: [place] [address], hemoglobin 9.6, and platelet count 11,000. Creatinine is 0.7, GFR is greater than 60. Liver function studies are elevated. Urine grew E coli. Blood cultures are negative. Pleural fluid cultures are negative and also the pleural fluid is negative for fungi and AFB on smear. The pleural fluid white cell count was 1895, white blood cells with 96% polymorphonuclear organisms. Yesterday, the chest x-ray noted that the pneumonia was getting slightly worse. ASSESSMENT AND PLAN: The patient has pneumonia and a urinary tract infection. I am going to continue with vancomycin, cefepime, and today azithromycin was started because the patient is allergic to Levaquin. Although the pleural fluid did have a lot of white cells, the note by the radiologist said that the pleural fluid was grossly bloody, so therefore, the white blood cell count is going to be higher because there is bleeding in the pleural fluid. I do not think that the pleural fluid is infected and I do not think a chest tube is necessary. The patient does have urinary tract infection. It is hard for me to know whether it is causing any symptoms or if it is responsible for the leukocytosis, but in any event, it is being treated with the antibiotics that are being used for the patient's pneumonia. COMORBIDITIES: Unfortunately, the patient has metastatic breast cancer with metastases to the brain, lung and liver. The patient had diabetes mellitus but because she is eating so much less, she does not have to take any diabetic medicine and her blood glucose is not high. cc: Michael Pena MD
[2018-12-15 09:55] LABS: INR 1.77
--- NOTE | 2018-12-15 11:57 | PROGRESS NOTE ---
DATE: 12/15/2018 SUBJECTIVE: This morning Ms. Bonner refers to be doing fair. She still has some residual shortness of breath. She just came from the radiation therapy. OBJECTIVE: Vital Signs: Blood pressure 134/80, pulse of 137, respirations 26, and temperature is 97.6 degrees. General: Ms. Bonner is a 53-year-old female. She is in bed. She is in mild respiratory distress. Mucosa is pink and moist. Anicteric. Acyanotic. Neck: Supple. Respiratory: Air entry is bilaterally reduced, more so to the right lung field. There is a lot of crackles in both lungs. Cardiovascular: Tachycardic but no murmurs. GI: Abdomen: Soft. Minimally tender in the right upper quadrant. There is palpable hepatomegaly. Extremities: No pedal edema. STOCK CLIPPER: Patient is awake and alert. LABORATORY DATA: WBC is up to 16.80, hemoglobin is 9.6, and platelet count is 11,000. The patient's INR is 1.77, fibrinogen seems to be trending down. Chemistry is also reviewed. Liver enzymes are trending up. DIAGNOSTIC STUDIES: 1. A chest x-ray this morning continued to show pulmonary metastatic disease. There is a large right pleural effusion. ASSESSMENT: 1. Respiratory distress secondary to a combination of pleural effusion, metastatic lung disease and pneumonia. 2. Postobstructive pneumonia with effusion. The patient is status post thoracentesis with 800 mL of grossly bloody pleural fluid was drained. 3. E. Coli UTI. Patient is on antimicrobial therapy. 4. Hypothyroidism. We will continue with supplement. 5. History of triple negative breast cancer with widespread metastasis to the lungs and liver. 6. Thrombocytopenia, which continues to worsen. I think this is secondary to smothering DIC. We will continue to support. Today, we are going to consult palliative care. We will also give Ms. Bonner one unit of platelet transfusion. She continues to be critically sick with poor prognosis. cc: Reji Mcfarlane MD [facility]
[2018-12-15] MEDS: VANCOMYCIN 1,450 MG in NS 250 ML IV SCH (14:01)
[2018-12-15] MEDS ORDERED: NORCO-10 PO PRN (17:24)
--- NOTE | 2018-12-15 18:32 | PULMONOLOGY PROGRESS NOTE ---
DATE: 12/15/2018 SUBJECTIVE: The patient is awake. She has mild anxiety. She has mild increased work of breathing. OBJECTIVE: Vital Signs: Blood pressure 136/91, heart rate 34, respiratory rate 134, oxygen saturation 93%. HEENT: Mild temporal wasting. Oropharynx appears dry. Neck: Supple. Chest: Reveals diminished breath sounds throughout the right chest with normal breath sounds on the left. Cardiac: Increased rate, regular rhythm. Abdomen: Soft. Extremities: Reveal no significant edema. LABORATORIES: Chest x-ray reveals increased effusion on the right side, nodules identified on the left side. Arterial blood gas not performed today. White blood count 16.8, hemoglobin 9.6, platelet count 11,000. Sodium 136, potassium 4.3, chloride 98, bicarbonate 21, BUN 39, creatinine 0.7, bilirubin 1.69, AST 222, ALT 122, alkaline phosphatase 280. IMPRESSION: Unfortunate 53-year-old female with metastatic breast cancer with disease identified in the brain, extensive disease in the lung, right greater than left, pleural effusion, extensive metastasis to the liver, hypoxemic respiratory failure, dyspnea with air hunger. PLAN: 1. Continue oxygen for hypoxemic respiratory failure. 2. Continue opioids and benzodiazepines for air hunger and anxiety. 3. Agree with plans for palliative care consultation. Her prognosis is extremely poor. She is not going to survive to discharge if she requires an intubation and mechanical ventilation. 4. Ongoing discussions and support with the family. cc: Milton Beckman MD
[2018-12-15] MEDS ORDERED: HYDROCODONE/APAP 7.5-325/15 ML PO PRN (19:06)
[2018-12-15] MEDS ORDERED: ATIVAN IV PRN (20:53)
[2018-12-15] MEDS ORDERED: ZOFRAN IV PRN (20:53)
[2018-12-15] MEDS ORDERED: TYLENOL PR PRN (20:56)
[2018-12-15] MEDS ORDERED: SODIUM CHLORIDE 0.9% INJ SCH (21:00)
[2018-12-15] MEDS ORDERED: PROTONIX IV SCH (21:00)
[2018-12-15] MEDS ORDERED: QUELICIN ONE (23:26)
[2018-12-15] MEDS ORDERED: DIPRIVAN 1% 1,000 MG/100 ML BOTTLE ONE (23:26)
[2018-12-15] MEDS: DIPRIVAN 1% 1,000 MG/100 ML BOTTLE IV SCH (23:30)
[2018-12-15] MEDS ORDERED: NEO-SYNEPHRINE 50 MG in NS 250 ML IV SCH (23:30)
[2018-12-15] MEDS ORDERED: NS 500 ML ONE (23:32)
[2018-12-16 00:11] LABS: ALLEN TEST YES; BE -13.3 mmoll (-3.0-3.0); BLOOD TYPE ARTERIAL; HCO3-(ACT) 14.6 mmoll (20.0-26.0); O2(CT) 14.2 mL/dL (15.0-23.0); O2HB 97.5 % (95.0-99.0); PCO2(98.6) 30 mmHg (35-45); PO2(98.6) 414 mmHg (60-100); SAMPLE BLOOD; SAO2 99.9 % (95.0-100.0); SRATE 18 BPM; THB 9.5 g/dL (11.5-17.4); TVOL 500 mL; pH(98.6) 7.24 (7.35-7.45)
[2018-12-16 00:12] LABS: MODALITY VENTILATOR
[2018-12-16] MEDS ORDERED: QUELICIN IV ONE (01:15)
[2018-12-16] MEDS ORDERED: DIPRIVAN 1% IV ONE (01:16)
[2018-12-16] MEDS: MAXIPIME 2 GM in NS 100 ML IV SCH ×2 (01:23→08:13)
[2018-12-16] MEDS: DIPRIVAN 1% 1,000 MG/100 ML BOTTLE IV SCH ×4 (02:36→11:44)
[2018-12-16] MEDS: XOPENEX NEB INH SCH ×3 (03:21→11:24)
[2018-12-16 04:33] LABS: ALLEN TEST YES; BE -12.9 mmoll (-3.0-3.0); BLOOD TYPE ARTERIAL; HCO3-(ACT) 14.9 mmoll (20.0-26.0); O2HB 97.4 % (95.0-99.0); PCO2(98.6) 21 mmHg (35-45); PO2(98.6) 185 mmHg (60-100); SAMPLE BLOOD; SRATE 25 BPM; THB 9.2 g/dL (11.5-17.4); TVOL 500 mL; pH(98.6) 7.34 (7.35-7.45)
[2018-12-16 04:35] LABS: MODALITY VENTILATOR
--- NOTE | 2018-12-16 07:04 | Diag Imaging Result Doc PS360 ---
EXAM: CHEST-PORTABLE 12/16/2018 HISTORY: ett placement TECHNIQUE: AP portable at 0227 COMMENT: The patient is rotated to the right. There is a large right pleural effusion which may be loculated. There are nodular masses bilaterally consistent with metastatic disease. The lungs are slightly better expanded than on 12/15/2018. Otherwise are has been no significant change. There is an endotracheal tube with its tip just above the thoracic inlet. IMPRESSION: Improved inspiration. Otherwise stable chest. Electronically signed by Biju Zhong 12/16/2018 7:01 AM
[2018-12-16] MEDS: VANCOMYCIN 1,450 MG in NS 250 ML IV SCH (08:20)
[2018-12-16 08:29] LABS: BASO% 0.8 % (0.0-0.8); HEMATOCRIT 32.9 % (37.0-47.0); HEMOGLOBIN 10.2 g/dL (12.0-16.0); IMM GRAN# 1.58 X1000 (0.0-0.04); IMM GRAN% 6.1 % (0.0-0.5); LYMPH# 2.83 X1000 (1.2-3.4); MCH 31.1 PG (27-31); MCV 100.3 FL (81-99); MONO# 0.93 X1000 (0.11-0.59); MONO% 3.6 % (1.7-9.3); NEUT# 20.29 X1000 (1.4-6.5); NEUT% 78.5 % (42.2-75.2); PLT 12 X1000 (130-400); RBC 3.28 XMIL (4.2-5.4); RDW 21.2 % (11.5-14.5); WBC 25.83 X1000 (4.8-10.8)
[2018-12-16 08:33] LABS: INR 2.67; PROTIME 29.2 Seconds (11.0-16.0)
[2018-12-16] MEDS ORDERED: SODIUM CHLORIDE 0.9% INJ PRN (08:52)
[2018-12-16 08:54] LABS: ALB/GLOB RATIO 0.6; ALBUMIN 2.1 g/dL (3.5-5.0); CALCIUM 7.4 mg/dL (8.8-10.2); CREATININE 1.3 mg/dL (0.5-0.9); TOTAL BILIRUBIN 3.39 mg/dL (0.20-1.00); TOTAL PROTEIN 5.7 g/dL (6.3-8.3)
[2018-12-16 08:56] LABS: POTASSIUM 5.9 mmol/L (3.5-5.1)
[2018-12-16] MEDS ORDERED: SOLU-CORTEF IV SCH (09:00)
[2018-12-16] MEDS ORDERED: ZITHROMAX 500 MG/NS 500 MG/250 ML IVPB IV SCH (09:00)
[2018-12-16 09:09] LABS: ANISOCYTOSIS 3+; BANDS 6 % (0-1); HYPOCHROM 1+; LYMPHS 14 % (21-51); MONO 4 % (1-9); NRBC 7 % (0-0); POLYCHROM 1+; SEGS 74 % (42-75)
--- NOTE | 2018-12-16 09:37 | PROGRESS NOTE ---
DATE: 12/16/2018 SUBJECTIVE: This morning, Ms. Bonner was found intubated. I understand that last night to early this morning, she developed acute respiratory distress and had to be intubated. She is still in the ICU. There was no family member at the time of this encounter. OBJECTIVE: Vital signs: Blood pressure is 91/52, pulse of 139, respiration is 30, temperature of 98 degrees. General: Ms. Bonner is a 53-year-old female. She is in bed. She is currently intubated and sedated on propofol. She is, however, still tachycardic and tachypneic. HEENT: Mucosa is pink and moist. Anicteric. Acyanotic. Neck: Supple. Chest: Air entry is bilaterally reduced, more so to the right posterior lung field. Cardiovascular: Tachycardic but no murmur, no rubs, no gallops. Abdomen: Soft. Bowel sounds are hypoactive. There is palpable hepatomegaly. Central nervous system: Patient is currently sedated on propofol. Pupils are pinpoint but sluggishly reactive. LABORATORY DATA: WBC is up to 25.83, hemoglobin is 10.2, platelet count of 12,000. Coagulation, INR is up to 2.67. Fibrinogen continues to decline. ASSESSMENT: 1. Acute hypoxemic respiratory failure. The patient is currently intubated. Pulmonary Medicine has been consulted. We are going to follow up with further recommendation from them on the ventilator management. 2. Post obstructive pneumonia with effusion. The patient is status post thoracentesis, 800 mL of grossly bloody pleural fluid was drained. It appears this could be a malignant effusion with superimposed infection. 3. Escherichia coli urinary tract infection. Patient is on antimicrobial. 4. Hypothyroidism. 5. History of advanced triple-negative breast cancer with widespread metastases to lungs, brain and liver. 6. Thrombocytopenia with coagulopathy concerning for disseminated intravascular coagulation. 7. Severe lactic acidosis. 8. Shock. Presumably septic. The patient is on antimicrobials. PLAN: In general, Ms. Bonner continues to be extremely sick. Is now on full mechanical ventilation support. She is on antimicrobials including cefepime, vancomycin, and azithromycin. Vasopressor is on holding. She is on Decadron p.o. so we will switch this to IV. She continues to have extremely poor prognosis. I do not think she is going to be able to survive this hospitalization. Pending the family members to discuss her care going forward, she is still up until now a full code. cc: Reji Mcfarlane MD Critical time spent 45 minutes. NEGRITO
[2018-12-16 10:05] VITALS: BP 86/57
[2018-12-16] MEDS: MORPHINE IV PRN (12:00)
--- NOTE | 2018-12-16 13:19 | PROGRESS NOTE ---
DATE: 12/16/2018 ADDENDUM: I have spoken today, this morning, with the , the son, the daughter, and the [id number] at the patient's bedside. Ms Bonner continues to be extremely critical. I did go over the labs, where the liver enzymes have been skyrocketed and the fact that the creatinine is also creeping up. The patient's urine output has remarkably drastically reduced. She seems to be going into a multiorgan failure at this point with extremely poor prognosis. We did discuss about resuscitation status. At this point, the family will prefer to keep Ms. Bonner DNR level 1; no shock, no CPR. The patient is already intubated. They would want to keep that at least for now, but they do not want to escalate any care. They are going to talk with the parents and then make further recommendations. The family, however, does understand that, even on the support that Ms. Bonner is on now, she is extremely critical and that her blood pressures are in the lows and that she can crash. They, at this point, want to keep her as comfortable as possible. I will change her resuscitation status on her chart to reflect my conversation with the family. cc: Reji Mcfarlane MD
--- NOTE | 2018-12-16 18:05 | PULMONOLOGY PROGRESS NOTE ---
DATE: 12/16/2018 INTERIM HISTORY: The patient had significant increased work of breathing with tachypnea and tachycardia and smothering spells last evening. The patient was intubated and initiated on mechanical ventilation and was initiated on Diprivan for sedation. This morning she is sedated, but continues to have mild increased work of breathing, which did improve with the ventilator adjustments. Oxygenation is adequate. She remains mildly tachycardiac and with a heart rate of 130. Family is at the bedside. OBJECTIVE: Vital Signs: The patient has been afebrile for the last 24 hours. Blood pressure 105/70, heart rate 132, respiratory rate 31, oxygen saturation 97%. HEENT: Pupils are equal. Oropharynx appears clear. Neck: Supple. Chest: Reveals markedly diminished breath sounds throughout the right lung with crackles on the left. Cardiac: Increased rate, regular rhythm. Abdomen: Is soft. Extremities: Are cool to the touch. LABORATORIES: White blood count 25.8 thousand, hemoglobin 10.2, platelet count 12,000. Sodium 138, potassium 5.9, chloride 95, bicarbonate 11, anion gap 32, BUN 56, creatinine 1.3, total bilirubin 3.39, AST 1688, ALT 396. Arterial blood gas early this morning revealed pH 7.24, pCO2 of 30, PO2 of 114. Arterial blood gas at 4:23 reveals a pH 7.34, pCO2 of 21, PO2 of 185 with a lactate of 12.9. Chest x-ray reveals better expansion with some increased aeration on the right compared to yesterday. IMPRESSION: A 53-year-old with widely metastatic breast cancer, acute hypoxemic respiratory failure, hypotension, acute liver failure, acute renal insufficiency. The patient has significant lactic acidosis with an increased anion gap. This may be related to infection but may related to her advancing malignancy. RECOMMENDATIONS: 1. Continue full ventilatory support. 2. Continue antibiotics per Infectious Disease. 3. Continue comfort medications. 4. Ongoing end of life discussions. The patient's prognosis is extremely poor and she is unlikely to survive this hospital stay. I spoke with the family. I anticipate they will transition her to a do not resuscitate level 2 and avoid cardiopulmonary resuscitation or defibrillation if she has an acute cardiopulmonary decompensation. TIME SPENT: With critical care management 30+ minutes. cc: Milton Beckman MD
--- NOTE | 2018-12-16 21:26 | DISCHARGE SUMMARY ---
ADMISSION DATE: 12/11/2018 DISCHARGE DATE: 12/16/2018 DATE OF : 12/16/2018 TIME OF : 1227. Patient was pronounced by 2 ICU nurses. DIAGNOSES AT THE TIME OF ADMISSION: 1. Community-acquired pneumonia. 2. Urinary tract infection. 3. Breast cancer. 4. Hypothyroidism. DIAGNOSES AT THE TIME OF : 1. Acute hypoxemic respiratory failure. 2. Cardiopulmonary arrest. 3. Postobstructive pneumonia with effusion. 4. Escherichia coli urinary tract infection. 5. Advanced triple negative breast cancer with widespread metastasis to lungs, brain and liver. 6. Disseminated intravascular coagulation secondary to underlying sepsis. 7. Septic shock. 8. Severe lactic acidosis. 9. Shock liver. 10. Hypothyroidism. PRESENTING COMPLAINT: Shortness of breath. HISTORY OF PRESENTING COMPLAINT: Ms. Bonner is a 53-year-old female who is known to have triple negative breast cancer with metastasis to brain, lungs and liver, came to the emergency department because of shortness of breath. Apparently Ms. Bonner has failed traditional chemotherapy. Had coburn brain radiation and was recently started on Opdivo. Unfortunately on presenting to the emergency department, she was found to be in respiratory distress. Oxygen saturation was in the 80s. She was admitted for further medical care. HOSPITAL COURSE: Ms. Bonner was admitted initially to the medical floor. However, her condition continued to worsen so she was transferred to the ICU. She was started on broad- spectrum IV antibiotics. Pulmonary medicine was consulted as well as Infectious Disease. Heme- Onc was also consulted. During the hospital course arrangements were made by Heme-Onc for Ms Bonner to get radiation therapy. She underwent 2 times this treatment modality. However last night she became more short of breath. The family decided to put her on the ventilator. This morning her condition continued to worsen. The family did decide to make her DNR. The immigration law specialist on service spoke with the family members. I also did speak with the family members extensively and explained the gravity and the critical nature of Ms. Bonner's current medical status. Unfortunately, at about 1227 Ms. Bonner lost pulses, did not have any heart rate. Pupils were blown, dilated. She did not have any signs of vitality, was evaluated by 2 ICU nurses, was found to be and she was subsequently pronounced . Family members were notified. cc: Reji Mcfarlane MD [facility]
[2018-12-17] MEDS ORDERED: SYNTHROID IV SCH (07:00)
--- NOTE | 2018-12-18 10:54 | Extremity Venous Study ---
PROCEDURE NAME: Venous U/S Right Leg - 12/13/2018 PROCEDURE: Right lower extremity venous duplex and color flow imaging study using the GE vivid E9 ultrasound System with a 9 L-D transducer. REFERRING PHYSICIAN: Dr. Barbour. IDENTIFICATION: A 53-year-old female. ROBOTIC WELD TECHNICIAN: Adele Santos RVT. INDICATIONS: The patient has a history of breast cancer with metastatic disease. She has right lower extremity pain and edema. Rule out deep venous thrombosis. FINDINGS: The right common femoral vein and its branches, deep and superficial femoral veins were satisfactorily imaged. They had flow through them and were compressible. Right popliteal vein and deep veins below the right knee were all compressible and had flow through them. The superficial veins in the left lower extremity were compressible throughout their length. INTERPRETATION: No evidence of acute deep or superficial venous thrombosis, left lower extremity. cc: MD Kilo Santiago CRNP
== END 2018-12-16 12:27 | disposition expired | DRG 871 ==
LOC: SUPCPDRO → ED 00:36 → 3N 04:42 → SUATTDRO 04:42 → ICU 16:07
PROVIDERS: ATTEND Internal Medicine